=== PATIENT | male | born 2000 | race Caucasian/White ===

== ENCOUNTER 2019-12-17 16:34 | Emergency (ER) | payer OTHER ==
[~2019-12-17] VITALS: Ht 182.9 cm; Wt 63.5 kg
[2019-12-17] MEDS ORDERED: IBUP600 PO (18:01)
== END 2019-12-17 18:31 | disposition home or self-care (01) ==
LOC: ER 16:34 → EDBD 16:34 → ER 18:31
DX: S16.1XXA Strain of muscle, fascia and tendon at neck level, initial encounter (principal); V89.2XXA Person injured in unspecified motor-vehicle accident, traffic, initial encounter
CPT/HCPCS: 72040; 73130; 99284-25